=== PATIENT | male | born 1965 | race Two or more races ===

== ENCOUNTER 2025-04-28 07:19 | Outpatient (CLI) | payer BC ==
[~2025-04-28] VITALS: Ht 157.5 cm; Wt 79.8 kg
[2025-04-28] MEDS: REGADENOSON 0.4 MG/5 ML SYRG IV ONE ×2 (09:10)
== END 2025-04-28 17:00 | disposition home or self-care (01) ==
LOC: XYW 07:19
PROVIDERS: ATTEND Specialist
DX: I25.10 Atherosclerotic heart disease of native coronary artery without angina pectoris (principal); E78.00 Pure hypercholesterolemia, unspecified; K44.9 Diaphragmatic hernia without obstruction or gangrene; D64.9 Anemia, unspecified
CPT/HCPCS: 93017; J2785